=== PATIENT | female | born 1980 | race Caucasian/White ===

== ENCOUNTER 2016-06-20 16:29 | Inpatient (IN) | payer BC ==
[~2016-06-20] VITALS: Ht 180.3 cm; Wt 118.4 kg
[2016-06-20 16:48] VITALS: BP 141/87
[2016-06-20 18:25] LABS: BASOPHIL COUNT 0.1 K/uL (0-0.1); EOSINOPHIL (%) 2.9 % (0-5); EOSINOPHIL COUNT 0.5 K/uL (0-0.3); HEMATOCRIT 38.1 % (36.0-46.0); IMMATURE GRANULOCYTE (%) 0.5 % (0.0-0.7); IMMATURE GRANULOCYTE COUNT 0.1 K/uL; INSTRUMENT ABS NEUTROPHIL CT 12.3 K/uL; MCH 29.3 PG (29.0-34.0); MCV 91.4 FL (83-99); MEAN PLAT.VOLUME 12.3 uM^3 (9.5-12.4); MONOCYTE (%) 5.5 % (3-12); MONOCYTE COUNT 0.9 K/uL (0-0.8); NEUTROPHIL (%) 78.4 % (45-76); NEUTROPHIL COUNT 12.3 K/uL (1.8-6.4); PLATELET COUNT 220 K/uL (156-360); RBC DIS.WIDTH-CV 13.8 % (11.8-14.6); RBC DIS.WIDTH-SD 46.5 % (39-53); RED BLOOD COUNT 4.17 M/uL (3.80-5.20); WHITE BLOOD COUNT 15.7 K/uL (4.1-10.2)
[2016-06-20 19:30] VITALS: BP 144/82
[2016-06-20 21:50] VITALS: BP 133/74
[2016-06-21] VITALS (10 sets, daily range): BP systolic 122–151; BP diastolic 63–83
[2016-06-21] MEDS ORDERED: MOTRIN800 MG PO (01:19)
[2016-06-22 08:01] VITALS: BP 123/57
== END 2016-06-22 11:40 | disposition home or self-care (01) | DRG 775 ==
LOC: LDRP-OP 16:29 → 2WEST 16:30 → LDRP-OP 07-05 10:23
PROVIDERS: Nurse Practitioner
PROC: 10E0XZZ Delivery of Products of Conception, External Approach (ICD-10-PCS; principal; 2016-06-21)
DX: O42.02 Full-term premature rupture of membranes, onset of labor within 24 hours of rupture (principal); O69.3XX0 Labor and delivery complicated by short cord, not applicable or unspecified; O99.824 Streptococcus B carrier state complicating childbirth; Z3A.42 42 weeks gestation of pregnancy; Z37.0 Single live birth
CPT/HCPCS: 85025; G0378; J2540; J2590; J7120

== ENCOUNTER → 2016-06-27 | Outpatient (CLI) | payer BC ==
[~2016-06-27] MED LIST: MOTRIN800 MG PO
== END | disposition home or self-care (01) ==
LOC: LAC 12:31
DX: O92.79 Other disorders of lactation (principal)
CPT/HCPCS: G0463